=== PATIENT | male | born 1985 | race Caucasian/White ===

== ENCOUNTER 2024-03-07 13:30 | Emergency (ER) | payer OTHER, SELFPAY ==
[2024-03-07 13:34] VITALS: BP 145/79
--- NOTE | 2024-03-07 13:59 | ED.GENMED ---
History of Present Illness
General
Chief Complaint: Back Pain
Source: patient
Time Seen by Provider: 03/07/24 13:49
History of Present Illness
History of Present Illness:
38-year-old male with no significant past medical history presenting to the emergency department for evaluation of low back pain that has been progressively worsening over the last week or so. Patient states that he has a chronic issue with
spondylolisthesis from years ago but states that is usually manageable with some light stretching and chiropractic maneuvers but states after an accidental fall last week while running he states he started having increased pain to his lower back,
went to chiropractor on Friday and since the chiropractor has had more pain. Patient has been taking anti-inflammatories with some relief. Denies any fevers or infectious symptoms. He notes a tingling sensation along the lateral thighs
bilaterally. No bladder or bowel incontinence. Patient states that when he goes and attempts to stand straight he is unable to do so due to the muscle spasms
Past History
Past History
ED Past Medical History: None
ED Past Surgical History: Orthopedic
Social History
Tobacco: Non-smoker
Alcohol: None
Drug: None
Personal:
Living: with family
Employment: Employed
Review of Systems
Review of Systems
All Other Systems: ROS reviewed and negative except as documented in HPI and ROS
Phy Exam
Physical Exam
Physical Exam:
GENERAL: Alert , in no apparent distress at rest but uncomfortable with movements
EYE: clear conjunctiva b/l
NECK: Supple
ENT: mmm.
ABDOMEN: Soft, without focal tenderness, no r/g, no cvat
BACK: Limited range of motion 2/2 pain, no focal tenderness, no midline bony tenderness, no rashes
NEUROLOGICAL: Alert and oriented, no focal neuro deficits. Patellar deep tendon reflexes intact and equal bilaterally, sensation grossly intact and equal to light touch bilateral lower extremities
SKIN: Warm and dry, skin intact.
MUSCULOSKELETAL: No edema, well perfused. EHL intact bilaterally
PSYCH: Normal and appropriate interaction.
Scores
Heart Failure Risk
Heart Failure Risk Score: Not Applicable
Heart Score for Chest Pain Patients
STEMI patient?: Not applicable
Withdrawal Assessment of Alcohol
Withdrawal Assessment Completed?: Not applicable
Course
Orders/Labs/Results
Orders:
Orders
03/07/24 13:51
CR Lumbar Spine Comp Min 4 Vw* Urgent
Comment:
Reason For Exam: low back pain, fall
03/07/24 13:57
Diazepam [Valium] 5 mg PO NOW STA
Lidocaine [Lidocaine 4% Patch] 1 patch TOPICAL NOW STA
Apply Lidocaine patch(s) to:: lower back
03/07/24 14:22
Diazepam [Valium] 5 mg .ROUTE .STK-MED ONE
Lidocaine [Lidocaine 4% Patch] 1 patch .ROUTE .STK-MED ONE
Vital Signs
Initial and Last Documented VS:
Initial Vital Signs
Temp Pulse BP Pulse Ox
97.9 F 54 145/79 100
03/07/24 13:34 03/07/24 13:34 03/07/24 13:34 03/07/24 13:34
Last Documented Vital Signs
Temp Pulse BP Pulse Ox
97.9 F 54 145/79 100
03/07/24 13:34 03/07/24 13:34 03/07/24 13:34 03/07/24 13:34
MDM/Problems Addressed
Differential Diagnosis Includes:
Lumbar strain, disc bulging, disc herniation/nerve impingement, no concern for infectious etiology, possible fracture given the fall
MDM/Problems Addressed:
38-year-old male presenting to the emergency department for evaluation of low back pain that started worsening over the last week after an accidental fall while running. Reports a history of spondylolisthesis from years ago but states normal back
pain is usually easily managed with OTC meds and occasional chiropractor adjustments. Went to chiropractor on Friday and has had worsening pain/spasms since. Last took Aleve this morning around 9 AM. Will treat here with muscle relaxer and
topical agents. Will likely trial steroid taper for home use. Will provide with information for back specialist. X-ray ordered. Reassessment following
*Radiology
Radiology exam reviewed: preliminary read by ED provider (no fx)
*Pulse Oximetry
Patient hypoxic: no
*Critical Care Note
Total Time (30-74mins, 75-104mins- exclusive of procedures): Not Applicable
Patient Management
Escalation/DeEscalation of care consider admission/obs:
Patient's x-ray without any acute fracture. There is straightening of the lordotic curve from likely muscle spasm. Continue anti-inflammatories,, will add on steroid taper as well as Valium for muscle relaxation. Provided patient with information
for Ortho. Stable for discharge home.
ED Attending Note
-
Portions of this chart may have been created with voice recognition software.� Occasional wrong word or��sound alike� substitutions may have occurred due to the inherent limitations of voice recognition software.
Discharge Plan
Departure
Patient Disposition: Home (Routine Discharge)
Date of Disposition: 03/07/24
Time of Disposition: 14:25
Patient with high blood pressure during this ER visit?: Yes
Discharge Problem:
Low back pain
Instructions: Low Back Pain (DC)
Prescriptions:
New
methylprednisolone [Medrol (Sunny)] 4 mg tablets,dose pack
4 mg PO DIRECTED Qty: 21 0RF
diazepam [Valium] 5 mg tablet
5 mg PO BID PRN (Reason: muscle spasm) Qty: 8 0RF
Referrals:
Elsie Conway I. DO [Active] - (Ortho)
Lorene Myers DO [Family Provider] -
Interventions
Interventions:
*Risk Screen - Suicide Last Done: 03/07/24 13:41
*General Assessment Last Done: 03/07/24 13:41
*Neglect/Abuse Screening Last Done: 03/07/24 13:41
ED- Fall Risk Assessment Last Done: 03/07/24 14:20
*ED COVID-19 Vaccine History Last Done: 03/07/24 14:31
*Nursing Disposition Last Done: 03/07/24 14:20
ED-Musculoskeletal Assessment Last Done: 03/07/24 14:31
Discharge Date and Time
Discharge Date/Time: 03/07/24 14:51
Print Language: CITIZEN [place]
[2024-03-07] MEDS: LIDOCAINE 4% PATCH 1 PATCH TOPICAL (14:24)
[2024-03-07] MEDS: VALIUM 5 MG PO (14:25)
== END 2024-03-07 14:51 | disposition home or self-care (01) ==
LOC: EMR 13:30
PROVIDERS: EMERGENCY PHYSICIAN Student in an Organized Health Care Education/Training Program; FAMILY PHYSICIAN Family Medicine
DX: M54.50 Low back pain, unspecified (principal); W19.XXXA Unspecified fall, initial encounter
CPT/HCPCS: 99283; 72110